=== PATIENT | male | born 1970 | race Caucasian/White ===

== ENCOUNTER → 2017-09-12 08:20 | Outpatient (CLI) | payer OTHER, SELFPAY ==
--- NOTE | 2017-09-12 08:45 | US_ITS ---
STUDY: ABDOMINAL ULTRASOUND REASON FOR EXAM: Male, 47 years old. Right upper quadrant pain. Preoperative assessment for bariatric surgery. TECHNIQUE: Transabdominal ultrasound was performed with real-time and static wagoner scale imaging. TECHNICAL QUALITY: Adequate. COMPARISON: None. FINDINGS: Liver: The liver is enlarged and measures 21.5 cm. There is increased echogenicity consistent with fatty infiltration. The bile ducts are within normal limits. There is hepatic color flow. The direction of portal flow is hepatopetal. There is no demonstrated mass lesion. Portal vein measurement: Gallbladder: Normal distended gallbladder. The gallbladder wall measures 2.5 mm. There is a negative sonographic Starks's sign. There is no pericholecystic fluid. There are no gallstones. Common Bile Duct (C.B.D.): The common bile duct measures 4.5 mm. Pancreas: Normal size of the head, body and tail of the pancreas. There is normal echogenicity of the pancreas. There is no demonstrated pancreatic mass or cyst. Spleen: Normal size of the spleen. The spleen measures 13.4 cm x 5.1 cm x 4.4 cm. Right Kidney: Normal size of the right kidney. The right kidney measures 14.7 cm x 5.4 cm x 7.4 cm. Normal renal cortex. The right cortex measures 1.7 cm. There is no demonstrated renal mass or cyst. There is no right hydronephrosis. Several nonobstructive intrarenal calculi are seen. The largest is in the upper pole measures 1.8 cm. Left Kidney: Normal size of the left kidney. The left kidney measures 16.1 cm x 6.0 cm x 4.9 cm. Normal renal cortex. The left cortex measures 2.1 cm. There is a 1.5 cm x 1.7 cm x 1.4 cm cyst. Multiple nonobstructive intrarenal calculi are seen. There is no left hydronephrosis. Aorta: Unremarkable. I.V.C.: The IVC is patent. There is no ascites. US/Abdomen Complete IMPRESSION: Hepatomegaly and fatty infiltration of the liver. Nonobstructive bilateral intrarenal calculi. Small left renal cyst. Electronically Signed: Ralph Jones MD at 12:17 EST Tel [phone], Service support ,
--- NOTE | 2017-09-12 08:46 | RAD_ITS ---
STUDY: AIR-CONTRAST UPPER GI SERIES. REASON FOR EXAM: Male, 47 years old. Preoperative assessment for gastric bypass surgery. FLUOROSCOPY TIME (if supplied): (0:46) minutes/seconds TECHNIQUE: The patient ingested barium. Multiple images of the esophagus stomach and duodenum were obtained. COMPARISON: None. FINDINGS: The esophagus is unremarkable. There is no evidence of esophageal obstruction. No mass lesion is seen. There is no evidence of gastroesophageal reflux. The stomach and duodenum are unremarkable. No mass lesion is seen. There is no evidence of ulceration. RAD/Upper GI Series Only IMPRESSION: Unremarkable air-contrast upper GI series. Electronically Signed: Ralph Jones MD at 12:39 EST Tel [phone], Service support ,
== END ==
PROVIDERS: Family Provider Family Medicine; PCP Family Medicine; Visit Provider Registered Nurse Nephrology
DX: R10.84 Generalized abdominal pain (principal); I10 Essential (primary) hypertension; G47.33 Obstructive sleep apnea (adult) (pediatric); R06.02 Shortness of breath; E78.00 Pure hypercholesterolemia, unspecified; E66.01 Morbid (severe) obesity due to excess calories
CPT/HCPCS: 74246; 76700

== ENCOUNTER → 2017-11-13 14:11 | Outpatient (CLI) | payer OTHER, SELFPAY ==
[2017-11-13 14:41] LABS: Hematocrit 44.2 % (40-54); Hemoglobin 14.9 g/dl (13.0-16.5); Mean Corp Hgb Conc 33.7 g/gl (32-36); Mean Corpuscular Hgb 28.8 pg (27.0-32.0); Mean Corpuscular Volume 85.5 fL (80-94); Mean Platelet Vol. 9.7 fl (6.2-12.0); Platelet Count 262 K/mm3 (150-450); RBC Distribution Width CV 15.6 % (11.6-14.6); RBC Distribution Width SD 48.5 fl (35.1-43.9); Red Blood Count 5.17 M/mm3 (4.6-6.2); Scan Indicated on CBC? Y/N NO; White Blood Count 8.8 K/mm3 (4.4-11.0)
== END ==
PROVIDERS: Family Provider Family Medicine; PCP Family Medicine; Visit Provider Registered Nurse Nephrology
DX: R10.84 Generalized abdominal pain (principal); I10 Essential (primary) hypertension
CPT/HCPCS: 36415; 85027

== ENCOUNTER → 2018-01-24 09:30 | Outpatient (CLI) | payer OTHER, SELFPAY ==
[2018-01-24 09:56] LABS: Hematocrit 41.2 % (40-54); Hemoglobin 13.3 g/dl (13.0-16.5); Mean Corp Hgb Conc 32.3 g/gl (32-36); Mean Corpuscular Hgb 28.2 pg (27.0-32.0); Mean Corpuscular Volume 87.5 fL (80-94); Mean Platelet Vol. 9.9 fl (6.2-12.0); Platelet Count 279 K/mm3 (150-450); RBC Distribution Width CV 15.9 % (11.6-14.6); RBC Distribution Width SD 50.8 fl (35.1-43.9); Red Blood Count 4.71 M/mm3 (4.6-6.2); White Blood Count 5.9 K/mm3 (4.4-11.0)
[2018-01-24 09:59] LABS: Scan Indicated on CBC? Y/N NO
[2018-01-24 11:27] LABS: ALB/GLOB Ratio 0.9 RATIO (0.9-2.4); AST(SGOT) 18 U/L (15-37); Alanine Aminotransfer ALT/SGPT 34 U/L (16-61); Albumin, Serum 3.6 g/dL (3.2-5.0); Alkaline Phosphatase 75 U/L (45-117); Anion Gap 10 (5-15); BUN 9 mg/dL (7-18); BUN/Creat Ratio 12.3 RATIO (10-20); Calcium,Total 9.1 mg/dL (8.5-10.1); Chloride 105 mmol/L (98-107); Creatinine, Serum 0.73 mg/dL (0.70-1.30); EST Glomerular Filtration Rate 122 mL/min (>60); Est Glom Filt Rate - Afr Amer 148 mL/min (>60); Ferritin 218 ng/mL (26-388); Globulin 4.1 g/dL (2.2-4.2); Glucose 83 mg/dL (74-106); Iron 62 ug/dL (65-175); Magnesium 1.7 mg/dL (1.6-2.6); Potassium 4.1 mmol/L (3.5-5.1); Protein, Total 7.7 g/dL (6.4-8.2); Sodium Level 140 mmol/L (136-145)
[2018-01-24 11:37] LABS: Vitamin B12 715 pg/mL (211-911)
[2018-01-28 10:24] LABS: Zinc, Plasma or Serum 110 ug/dL (56-134)
== END ==
PROVIDERS: Family Provider Family Medicine; PCP Family Medicine; Visit Provider Surgery
DX: E61.1 Iron deficiency (principal); E61.9 Deficiency of nutrient element, unspecified; E66.01 Morbid (severe) obesity due to excess calories; K90.9 Intestinal malabsorption, unspecified; I10 Essential (primary) hypertension; E78.00 Pure hypercholesterolemia, unspecified; R40.0 Somnolence; E55.9 Vitamin D deficiency, unspecified; Z68.42 Body mass index [BMI] 45.0-49.9, adult
CPT/HCPCS: 36415; 80053; 82607; 82728; 82746; 83540; 83735; 84630; 85027

== ENCOUNTER 2018-04-05 11:57 | Emergency (ER) | payer OTHER, SELFPAY ==
[2018-04-05 11:57] VITALS: BP 139/82; PULSE 60; RESP 18; TEMP 36.1; O2SAT 99; BMI 40.6
--- NOTE | 2018-04-05 12:13 | ED.VISSUMM ---
- ER Visit Summary Date of Service: 04/05/18 Chief Complaint: Back pain History of Present Illness: The patient is a 48 M who presents after tweaking his back secondary to near fall. States he was walking to his office. His right foot became entangled with leg of chair. Unable to on tangle his foot. He fell forward into a cabinet. Pushed Against the wall. He had hyper extension of his back and complained of pain. He denies any radicular pain. He has no other complaints please read written note Physical Examination: Vital signs are noted and blood pressure is elevated 139/82. There is no pain the patient of back. Straight leg test and crossover test negative. Patella and ankle reflex 1+. He has no foot drop. EHL is intact. The remainder of exam is unremarkable Test Results: None are indicated Emergency Department Course and Treatment: Since he is status post gastric bypass surgery NSAIDs are contraindicated. He was informed to take Tylenol. He presently has no pain. Treatment Plan: Rest, ice and Tylenol. Disposition: Discharge Impression: Bilateral low back strain secondary to near fall initial encounter This note was generated with [employer] dictation software. It may contain incorrect words, spelling, and punctuation that were not noted in review of the chart prior to signing ED Disposition - Plan for ED Patient: Disposition: Home or Assisted Living Chief Complaint: Fall Instructions: ED Sprain Strain Lumbar Referrals: José Miguel Hercules DO [Primary Care Provider] - As Needed [facility] [GROUP OF PHYSICIANS] - As Needed
== END 2018-04-05 12:37 | disposition home or self-care (01) ==
PROVIDERS: Emergency Provider Emergency Medicine; Family Provider Family Medicine; PCP Family Medicine
DX: S39.012A Strain of muscle, fascia and tendon of lower back, initial encounter (principal); W19.XXXA Unspecified fall, initial encounter; Y93.9 Activity, unspecified; Y92.9 Unspecified place or not applicable; E66.9 Obesity, unspecified; I10 Essential (primary) hypertension; Z98.84 Bariatric surgery status; Z79.899 Other long term (current) drug therapy
CPT/HCPCS: 99282

== ENCOUNTER → 2018-05-07 07:56 | Outpatient (CLI) | payer OTHER, SELFPAY ==
[2018-05-07 08:14] LABS: Hematocrit 46.5 % (40-54); Hemoglobin 15.3 g/dl (13.0-16.5); Mean Corp Hgb Conc 32.9 g/gl (32-36); Mean Corpuscular Hgb 28.7 pg (27.0-32.0); Mean Corpuscular Volume 87.2 fL (80-94); Mean Platelet Vol. 10.1 fl (6.2-12.0); Platelet Count 258 K/mm3 (150-450); RBC Distribution Width CV 14.8 % (11.6-14.6); RBC Distribution Width SD 47.3 fl (35.1-43.9); Red Blood Count 5.33 M/mm3 (4.6-6.2)
[2018-05-07 08:18] LABS: Scan Indicated on CBC? Y/N NO
[2018-05-07 08:54] LABS: Vitamin B12 387 pg/mL (211-911)
[2018-05-07 09:38] LABS: ALB/GLOB Ratio 0.9 RATIO (0.9-2.4); AST(SGOT) 20 U/L (15-37); Alanine Aminotransfer ALT/SGPT 28 U/L (16-61); Albumin, Serum 3.7 g/dL (3.2-5.0); Alkaline Phosphatase 100 U/L (45-117); Anion Gap 9 (5-15); BUN 14 mg/dL (7-18); BUN/Creat Ratio 18.6 RATIO (10-20); Calcium,Total 9.4 mg/dL (8.5-10.1); Chloride 106 mmol/L (98-107); Creatinine, Serum 0.75 mg/dL (0.70-1.30); EST Glomerular Filtration Rate 118 mL/min (>60); Est Glom Filt Rate - Afr Amer 143 mL/min (>60); Ferritin 104 ng/mL (26-388); Globulin 4.1 g/dL (2.2-4.2); Glucose 89 mg/dL (74-106); Iron 53 ug/dL (65-175); Magnesium 2.4 mg/dL (1.6-2.6); Protein, Total 7.8 g/dL (6.4-8.2); Sodium Level 142 mmol/L (136-145)
[2018-05-09 08:11] LABS: Zinc, Plasma or Serum 74 ug/dL (56-134)
== END ==
PROVIDERS: Family Provider Family Medicine; PCP Family Medicine; Visit Provider Registered Nurse Nephrology
DX: K90.9 Intestinal malabsorption, unspecified (principal); K21.9 Gastro-esophageal reflux disease without esophagitis; E78.00 Pure hypercholesterolemia, unspecified; E61.1 Iron deficiency; E55.9 Vitamin D deficiency, unspecified; E61.9 Deficiency of nutrient element, unspecified
CPT/HCPCS: 36415; 80053; 82607; 82728; 82746; 83540; 83735; 84630; 85027

== ENCOUNTER → 2018-08-09 07:54 | Outpatient (CLI) | payer OTHER, SELFPAY ==
[2018-08-09 08:46] LABS: Hematocrit 45.4 % (40-54); Mean Corpuscular Hgb 29.4 pg (27.0-32.0); Mean Platelet Vol. 10.1 fl (6.2-12.0); Platelet Count 234 K/mm3 (150-450); RBC Distribution Width CV 14.9 % (11.6-14.6); RBC Distribution Width SD 47.9 fl (35.1-43.9); White Blood Count 6.5 K/mm3 (4.4-11.0)
[2018-08-09 08:52] LABS: Scan Indicated on CBC? Y/N NO
[2018-08-09 09:42] LABS: BUN 13 mg/dL (7-18); Creatinine, Serum 0.72 mg/dL (0.70-1.30); Glucose 90 mg/dL (74-106)
[2018-08-09 09:43] LABS: AST(SGOT) 17 U/L (15-37); Alanine Aminotransfer ALT/SGPT 22 U/L (16-61); Albumin, Serum 3.7 g/dL (3.2-5.0); Alkaline Phosphatase 104 U/L (45-117); Anion Gap 7 (5-15); Calcium,Total 8.9 mg/dL (8.5-10.1); Chloride 108 mmol/L (98-107); Cholesterol 140 mg/dL (200); EST Glomerular Filtration Rate 123 mL/min (>60); Est Glom Filt Rate - Afr Amer 149 mL/min (>60); Ferritin 124 ng/mL (26-388); Globulin 3.8 g/dL (2.2-4.2); High Density Lipoprotein 46 mg/dL; Iron 86 ug/dL (65-175); Magnesium 2.1 mg/dL (1.6-2.6); Potassium 3.9 mmol/L (3.5-5.1); Protein, Total 7.5 g/dL (6.4-8.2); Sodium Level 141 mmol/L (136-145); Triglycerides 117 mg/dL; Very Low Density Lipoprotein 23 mg/dL (5-40)
[2018-08-09 10:49] LABS: Vitamin B12 389 pg/mL (211-911); Vitamin D,25 Hydroxy 31.4 ng/mL (29.95-100.01)
[2018-08-11 11:17] LABS: Zinc, Plasma or Serum 87 ug/dL (56-134)
== END ==
PROVIDERS: Family Provider Family Medicine; PCP Family Medicine; Referring Provider Registered Nurse Nephrology; Visit Provider Registered Nurse Nephrology
DX: K21.9 Gastro-esophageal reflux disease without esophagitis (principal); K90.9 Intestinal malabsorption, unspecified; I10 Essential (primary) hypertension; E61.1 Iron deficiency; G47.33 Obstructive sleep apnea (adult) (pediatric); E55.9 Vitamin D deficiency, unspecified; E66.01 Morbid (severe) obesity due to excess calories; E61.9 Deficiency of nutrient element, unspecified
CPT/HCPCS: 36415; 80053; 80061; 82306; 82607; 82728; 82746; 83540; 83735; 84630; 85027

== ENCOUNTER → 2018-10-08 08:57 | Outpatient (CLI) | payer OTHER, SELFPAY ==
[2018-08-31 13:00] VITALS: BMI 37.5
--- NOTE | 2018-10-08 09:00 | RAD_ITS ---
STUDY: AIR-CONTRAST UPPER GI SERIES. REASON FOR EXAM: Male, 48 years old. Status post gastric bypass surgery. FLUOROSCOPY TIME (if supplied): (0:07) minutes/seconds. 8 images were obtained. TECHNIQUE: The patient ingested barium. Imaging of the esophagus, stomach and duodenum were obtained. COMPARISON: Comparison is made with prior study dated September 12, 2017. FINDINGS: The esophagus is unremarkable. There is no evidence of esophageal obstruction. No mass lesion is seen. There is no evidence of gastroesophageal reflux. There is evidence of a small sliding hiatal hernia. The patient is status post gastric resection and anastomosis. There is no evidence of obstruction. There is no evidence of ulceration. Findings suggestive of left intrarenal calculi. RAD/Upper GI Series Only IMPRESSION: Small sliding hiatal hernia without gastroesophageal reflux. Status post partial gastrectomy and anastomosis. No abnormality is seen. Electronically Signed: Ralph Jones, at 8:53 EST , Service support ,
== END ==
PROVIDERS: Family Provider Family Medicine; PCP Family Medicine; Referring Provider Registered Nurse Nephrology; Visit Provider Registered Nurse Nephrology
DX: E61.9 Deficiency of nutrient element, unspecified (principal)
CPT/HCPCS: 74246

== ENCOUNTER → 2019-05-14 16:33 | Outpatient (CLI) | payer OTHER, SELFPAY ==
[2018-11-02 16:01] VITALS: BMI 37.5
--- NOTE | 2019-05-14 16:37 | US_ITS ---
STUDY: RENAL ULTRASOUND - COMPLETE REASON FOR EXAM: Male, 49 years old. Nephrolithiasis TECHNIQUE: Ultrasound evaluation of the kidneys was performed with real-time and static felix-scale imaging. COMPARISON: None available. FINDINGS: RIGHT KIDNEY: Normal location of the right kidney, which is normal in size. The right kidney measures 15 cm. There is a normal cortex of the right kidney. There is no right renal mass or cyst. Multiple right renal calculi are present, the largest measuring 6 mm. There is no right hydronephrosis. DISTAL RIGHT URETER: Not visualized. LEFT KIDNEY: Normal location of the left kidney, which is normal in size. The left kidney measures 15 cm. There is a normal cortex of the left kidney. There are 2 left renal cyst in the left kidney measuring up to 2.87 m. There are multiple renal calculi, measuring up to 5 mm.. There is no left hydronephrosis. DISTAL LEFT URETER: Not visualized. Hypoechoic structure is measured adjacent to the spleen may represent splenules. AORTA: No evidence of abdominal aortic aneurysm. I.V.C.: The IVC is patent. BLADDER: The urinary bladder is partially distended and appears unremarkable. US/Kidney and Bladder IMPRESSION: Bilateral renal stones and left renal cysts. No hydronephrosis. Electronically Signed: Marlo Morgan, at 18:31 EDT Tel , Service support ,
== END ==
PROVIDERS: Family Provider Family Medicine; PCP Family Medicine; Referring Provider Family Medicine; Visit Provider Family Medicine
DX: N20.0 Calculus of kidney (principal)
CPT/HCPCS: 76770

== ENCOUNTER → 2019-08-26 06:43 | Outpatient (CLI) | payer OTHER, SELFPAY ==
[2018-11-02 16:01] VITALS: BMI 37.5
--- NOTE | 2019-08-26 06:44 | CT_ITS ---
STUDY: CT ABDOMEN AND PELVIS WITH CONTRAST REASON FOR EXAM: Male, 49 years old. INCISIONAL HERNIA, LUMP IN UMBILICAL AREA NEXT TO SCAR FROM GASTRIC BYPASS SURGERY 11/2017 RADIATION DOSAGE (If Supplied By Facility): CTDIvol = ( 22.06 ) mGy, DLP = ( 1393.34 ) mGycm TECHNIQUE: Transaxial images were obtained from the dome of the diaphragm to the symphysis pubis without oral contrast. Oral and amp; IV Readi-CAT and amp; 100mL Isovue-300 was administered. Sagittal and coronal images were reconstructed. Individualized dose optimization techniques were used for this CT. COMPARISON: None. FINDINGS: The visualized lung bases are unremarkable. The visualized portions of the heart are within normal limits. Normal liver. Normal gallbladder and extrahepatic biliary system. Normal spleen. Normal pancreas. Normal bilateral adrenal glands. Multiple stones are seen in the right kidney largest measures 14 mm. Multiple stones are seen in the left kidney the largest is in the left renal pelvis measures 16mm. There is a cyst in the left kidney measures 3.7 cm. There is a gastric bypass. Normal small intestine. There are multiple colonic diverticula consistent with diverticulosis. There is non-visualization of the appendix. Normal abdominal aorta. Normal inferior vena cava. Normal retroperitoneum. Normal urinary bladder. There is a small umbilical hernia containing fat. Normal osseous structures. CT/Abdomen/Pelvis WITH Contrast IMPRESSION: Small umbilical hernia containing fat measures 2 cm. Bilateral kidney stones largest measures 16 mm. There is no hydronephrosis. Colon diverticulosis. Electronically Signed: Aruna Sanabria, at 7:55 EST Tel , Service support ,
== END ==
PROVIDERS: Family Provider Family Medicine; PCP Family Medicine; Referring Provider Registered Nurse Nephrology; Visit Provider Registered Nurse Nephrology
DX: K43.2 Incisional hernia without obstruction or gangrene (principal)
CPT/HCPCS: 74177; Q9967

== ENCOUNTER → 2020-10-28 07:20 | Outpatient (CLI) | payer OTHER, SELFPAY ==
[2018-11-02 16:01] VITALS: BMI 37.5
[2020-10-28 10:20] LABS: Absolute Lymphocyte Count 1.92 X10^3/uL (0.83-4.51); Absolute Neutrophil Count 5.9 X10^3/uL (2.0-7.7); Basophil# 0.05 X10^3/uL; Basophil% 0.6 % (0-1); Eosinophil# 0.16 X10^3/uL; Eosinophils% 1.8 % (0-5); Hematocrit 40.8 % (40-54); Hemoglobin 13.1 g/dL (13.0-16.5); Lymphocyte # 1.92 X10^3/ul (4.0); Lymphocyte % 21.7 % (19-41); Mean Corp Hgb Conc 32.1 g/dL (32-36); Mean Corpuscular Volume 90.5 fL (80-94); Mean Platelet Vol. 9.8 fl (6.2-12.0); Monocyte# 0.79 X10^3/uL; Monocyte% 8.9 % (0-10); NRBC Flagged by Analyzer 0 % (0-5); Neutrophil # 5.89 X10^3/uL (2.7-7.7); Neutrophil % 66.7 % (47-70); Platelet Count 309 K/mm3 (150-450); RBC Distribution Width CV 13.2 % (11.6-14.6); RBC Distribution Width SD 43.2 fl (35.1-43.9); Red Blood Count 4.51 M/mm3 (4.6-6.2); White Blood Count 8.8 K/mm3 (4.4-11.0)
[2020-10-28 10:27] LABS: Color, Urine Red (Yellow); Glucose, Dipstick Normal (Normal); Ketone-Dipstick Negative (Negative); Leukocyte Esterase-Dipstick 25 /ul (Negative); Nitrite-Dipstick Negative (Negative); Occult Blood-Urine 250 /ul (Negative); Protein-Dipstick 30 mg/dl (Negative); Specific Gravity, Urine 1.015 (1.002-1.030); Urine Bilirubin Dipstick Negative (Negative); Urine Clarity Cloudy (Clear); Urine Urobilinogen Normal (Normal)
[2020-10-28 11:01] LABS: ALB/GLOB Ratio 0.8 RATIO (0.9-2.4); AST(SGOT) 13 U/L (15-37); Alanine Aminotransfer ALT/SGPT 18 U/L (16-61); Albumin, Serum 3.7 g/dL (3.2-5.0); Alkaline Phosphatase 138 U/L (45-117); Anion Gap 6 (5-15); BUN 48 mg/dL (7-18); BUN/Creat Ratio 13.4 RATIO (10-20); CRP 4.35 mg/L (0.0-3.0); Calcium,Total 9.6 mg/dL (8.5-10.1); Chloride 107 mmol/L (98-107); Creatinine, Serum 3.57 mg/dL (0.70-1.30); EST Glomerular Filtration Rate 19 mL/min (>60); Est Glom Filt Rate - Afr Amer 24 mL/min (>60); Globulin 4.5 g/dL (2.2-4.2); Glucose 89 mg/dL (74-106); LDH 153 U/L (87-241); Protein, Total 8.2 g/dL (6.4-8.2); Sodium Level 140 mmol/L (136-145)
== END ==
PROVIDERS: PCP Family Medicine; Referring Provider Family Medicine; Visit Provider Family Medicine
DX: N28.89 Other specified disorders of kidney and ureter (principal); R31.9 Hematuria, unspecified
CPT/HCPCS: 36415; 80053; 81002; 83615; 85025; 86140

== ENCOUNTER 2020-10-28 12:57 | Emergency (ER) | payer OTHER, SELFPAY ==
[2018-11-02 16:01] VITALS: BMI 37.5
[2020-10-28 12:57] VITALS: BP 163/105; PULSE 88; RESP 16; TEMP 36.6; O2SAT 98; BMI 42.0
--- NOTE | 2020-10-28 13:00 | EKG12_ITS ---
Test Reason : CP Blood Pressure : / mmHG Vent. Rate : 076 BPM Atrial Rate : 076 BPM P-R Int : 162 ms QRS Dur : 096 ms QT Int : 360 ms P-R-T Axes : 009 -12 007 degrees QTc Int : 405 ms Normal sinus rhythm Normal ECG Confirmed by LASHELL NUNEZ, GISSELLE ([id number]), news video editor RAMESH DARDEN ([id number]) on 10/29/2020 12:47:49 PM Referred By: ABDIRIZAK/SEAN Confirmed By:GISSELLE LOBO MD
--- NOTE | 2020-10-28 13:40 | CT_ITS ---
STUDY: CT ABDOMEN AND PELVIS WITHOUT CONTRAST REASON FOR EXAM: Male, 50 years old. Left flank pain. Renal failure. Multiple kidney stones. RADIATION DOSAGE (If Supplied By Facility): CTDIvol = ( 24.06 ) mGy, DLP = ( 1400.50 ) mGycm TECHNIQUE: Transaxial images were obtained from the dome of the diaphragm to the symphysis pubis without oral contrast, and without intravenous contrast. Sagittal and coronal images were reconstructed. Individualized dose optimization techniques were used for this CT. COMPARISON: Comparison is made with prior study dated 08/26/2019. FINDINGS: The visualized lung bases are unremarkable. The visualized portions of the heart are within normal limits. Normal liver. Normal gallbladder and extrahepatic biliary system. Normal spleen. Normal pancreas. Normal bilateral adrenal glands. There is a 9.3 mm calculus in the mid posterior calyx of the right kidney. Mild degree of right hydronephrosis. This is due to a 1.1 cm calculus at the right renal pelvic junction. There also is a 1.4 cm calculus in the lower pole calyx of the right kidney. Moderate to marked degree of the left hydronephrosis. There is a 1.1 cm calculus in the posterior midpole calyx of the left kidney as well as 2 adjacent 9 mm calculi in the lower pole calyces. There is also evidence of a 1.1 cm calculus in the proximal portion of the left ureter. There is a small hiatal hernia. Status post subtotal gastrectomy for gastric bypass surgery. Normal small intestine. Normal colon. The appendix is visualized and appears normal. Normal abdominal aorta. Normal inferior vena cava. Normal retroperitoneum. Normal urinary bladder. Normal abdominal wall. There are degenerative changes of the visualized lumbar spine. CT/Abdomen/Pelvis without Cont IMPRESSION: Multiple bilateral renal calculi. Bilateral hydronephrosis worse on the left side due to obstructing calculi in the proximal left ureter as well as at the right ureteropelvic junction. Electronically Signed: Ralph Jones MD at 14:27 EDT , Service support ,
--- NOTE | 2020-10-28 13:41 | ED.DCSUM_ITS ---
History of Present Illness Chief Complaint: Flank Pain Informant: Patient Narrative: 50-year-old male with history of renal calculi presenting with hematuria. Patient states that he had his last real bout of flank pain in the left side in September. He states he never actually passed the stone. He states he does not usually come to the ER for pain because he does not like to. He does not follow with a urologist. He notes that this week he has had some hematuria. He states that in the morning his urine appears to be more clear and then over the course of the day he gets worsening hematuria. He states is not having very much pain. He is not nauseous or vomiting. He denies dysuria. Patient had outpatient lab work performed today which showed his creatinine was 3.5 and was sent to the ER. Patient states that he is able to eat and drink and states he is actually been drinking more frequently. He is not taking any NSAIDs. Past Medical History - Allergies and Home Meds Allergies/Adverse Reactions: Allergies azithromycin [From Zithromax Z-Seth] Adverse Reaction (Verified 10/28/20 13:00) Other burning feeling on tongue NSAIDS (Non-Steroidal Anti-Inflamma Adverse Reaction (Verified 10/28/20 13:00) Other Primary Care Physician: José Miguel Hercules DO [Primary Care Provider] - Prior records reviewed: Yes Past Medical History: - - Hypertension, seasonal allergies, kidney stones Surgical History: - - Multiple lithotripsies Lives: Spouse/ Significant Other Smoking Status: Never smoker Alcohol: None Drugs: None Review of Systems General: Denies: Chills, Fever, Sweats Eyes: Denies: Visual changes - bilaterally, Diplopia ENT: Denies: Rhinorrhea, Sore throat Cardiovascular: Denies: Chest pain, Palpitations Respiratory: Denies: Dyspnea, Cough, Dyspnea on exertion Gastrointestinal: Denies: Abdominal pain, Nausea, Vomiting, Diarrhea, Melena, Hematochezia Genitourinary: Denies: Dysuria, Hematuria, Frequency Musculoskeletal: Reports: Back pain - Mild flank pain Skin: Denies: Rash, Wounds Neurological: Denies: Headache, Weakness, Numbness Physical Exam Vital Signs/Narrative: Vital Signs Temp Pulse Resp BP Pulse Ox 10/28/20 12:57 97.8 F 88 16 163/105 H 98 Inital Vital Signs reviewed: Yes General: Well nourished, Well developed, No Acute Distress Eyes: Perrl, EOMI ENT: Moist mucous membranes, No rhinorrhea Cardiovascular: Regular rate, Regular rhythm, No murmurs Abdomen: Soft, Nontender, Nondistended Back: Negative for: CVA tenderness, Spinal tenderness Skin: Normal color, No rash Neurological: Alert, Oriented x3 Psychological: Normal affect, Normal Mood Diagnostic/Tx/Re-eval Clinical Impression(s) from Imaging Studies Abdomen/Pelvis CT 10/28/20 13:40 IMPRESSION: Multiple bilateral renal calculi. Bilateral hydronephrosis worse on the left side due to obstructing calculi in the proximal left ureter as well as at the right ureteropelvic junction. Electronically Signed: Ralph Jones MD at 14:27 EDT , Service support , - Medical Decision Making Already 10-year-old male presenting with history of kidney stones. Patient has no history of acute renal failure. Patient states that his last known kidney stone was in September. Patient had outpatient lab work today which showed hemoglobin of white blood cell count 8.8, hemoglobin 13.1, hematocrit 40.8, platelets 309. Urinalysis outpatient was positive for occult blood but negative for infection. Creatinine today is 3.57 previous creatinine of 0.72. Patient found to have bilateral ureteral calculi likely the source for the acute renal function. He does have bilateral hydronephrosis as well. Patient was discussed with Dr. Howard who states that she only sees female patients. We do not have an on-call urologist that can help him I am attempting to transfer him. [facility]. A call was made however the callback is still pending. Impression: 1. Hematuria 2. Obstructive uropathy 3. Acute renal failure ED Disposition - Plan for ED Patient: Disposition: [facility] Referrals: José Miguel Hercules DO [Primary Care Provider] -
[2020-10-28 13:43] VITALS: BP 147/95; PULSE 72; RESP 20; O2SAT 98
[2020-10-28 15:00] VITALS: BP 148/97; PULSE 61; RESP 15; O2SAT 100
--- NOTE | 2020-10-28 16:05 | NURSING ---
CALLED [facility]. FAXED FACESHEET
[2020-10-28] MEDS: 0.9% Normal Saline 1,000 ML 999 ML IV (16:06)
--- NOTE | 2020-10-28 16:36 | NURSING ---
[facility] [id number] NURSE TO NURSE [phone]
--- NOTE | 2020-10-28 16:40 | NURSING ---
CALLED [facility], ETA IS 90 MIN
--- NOTE | 2020-10-28 16:45 | CHAPLAIN ---
Type of Pastoral Visit _x__ Initial Visit ___ Follow-up Visit ___ On-call Visit ___ General Patient Visit ___ Spiritual Assessment ___ Family Conference ___ Bereavement ___ Rapid Response ___ Code Blue ___ Other (describe below) Pastoral Care Referral From ___ Patient _x__ Family ___ Nurse ___ Physician ___ Chimney Builder ___ Director Of Direct Marketing ___ Other (describe below) Sacrament/Intervention _x__ Active listening ___ Anointing ___ Sikh ___ Bereavement ___ Communion ___ Natalie exploration ___ ___ Life review _x__ Prayer ___ Reconciliation ___ Sacrament of Sick _x__ Supportive presence ___ Wedding ___ Other (describe below) Pastoral Comments
[2020-10-28 17:00] VITALS: BP 123/92; PULSE 63; RESP 18; O2SAT 98
[2020-10-28 18:00] VITALS: TEMP 36.8
[2020-10-28 18:22] VITALS: BP 123/92; PULSE 63; RESP 18; TEMP 36.6; O2SAT 98
== END 2020-10-28 18:23 | disposition short-term general hospital (02) ==
PROVIDERS: Emergency Provider Student in an Organized Health Care Education/Training Program; PCP Family Medicine
DX: N13.2 Hydronephrosis with renal and ureteral calculous obstruction (principal); R31.9 Hematuria, unspecified; N17.9 Acute kidney failure, unspecified; I10 Essential (primary) hypertension; Z87.442 Personal history of urinary calculi; Z79.899 Other long term (current) drug therapy
CPT/HCPCS: 74176; 93005; 96360; 96361; 99285; J7030; A4216

== ENCOUNTER → 2020-11-04 07:06 | Outpatient (CLI) | payer OTHER, SELFPAY ==
[2020-10-28 12:57] VITALS: BMI 42.0
[2020-11-04 08:09] LABS: Anion Gap 6 (5-15); BUN 40 mg/dL (7-18); BUN/Creat Ratio 16.3 RATIO (10-20); Chloride 104 mmol/L (98-107); Creatinine, Serum 2.45 mg/dL (0.70-1.30); EST Glomerular Filtration Rate 30 mL/min (>60); Est Glom Filt Rate - Afr Amer 36 mL/min (>60); Glucose 91 mg/dL (74-106); Potassium 3.8 mmol/L (3.5-5.1); Sodium Level 137 mmol/L (136-145)
== END ==
PROVIDERS: PCP Family Medicine; Referring Provider Internal Medicine Nephrology; Visit Provider Internal Medicine Nephrology
DX: N17.9 Acute kidney failure, unspecified (principal)
CPT/HCPCS: 36415; 80048

== ENCOUNTER → 2021-01-03 11:49 | Outpatient (CLI) | payer OTHER, SELFPAY ==
[2021-01-03 11:53] LABS: Bacteria 0 SEEN /hpf (None Seen); Mucous, Urine 0 SEEN /hpf (<or=2+); Squamous Epithelial Cells - UA 0 SEEN /hpf (0-5)
[2021-01-03 12:00] LABS: Hematocrit 35.5 % (40-54); Hemoglobin 11.2 g/dL (13.0-16.5); Mean Corp Hgb Conc 31.5 g/dL (32-36); Mean Corpuscular Hgb 28.8 pg (27.0-32.0); Mean Corpuscular Volume 91.3 fL (80-94); Mean Platelet Vol. 9.3 fl (6.2-12.0); Platelet Count 362 K/mm3 (150-450); RBC Distribution Width CV 13.3 % (11.6-14.6); RBC Distribution Width SD 44.7 fl (35.1-43.9); Red Blood Count 3.89 M/mm3 (4.6-6.2); White Blood Count 8.1 K/mm3 (4.4-11.0)
[2021-01-03 12:09] LABS: Color, Urine Yellow (Yellow); Glucose, Dipstick Normal (Normal); Ketone-Dipstick Negative (Negative); Leukocyte Esterase-Dipstick 500 /ul (Negative); Nitrite-Dipstick Negative (Negative); Occult Blood-Urine 250 /ul (Negative); Protein-Dipstick 30 mg/dl (Negative); Urine Bilirubin Dipstick Negative (Negative); Urine Clarity Sl. Cloudy (Clear); Urine Urobilinogen Normal (Normal)
[2021-01-03 12:17] LABS: Protein, Urine (Random) 58.7 mg/dL (<11.9); Protein:Creat Ratio 726 mg/g CRE (0-200); Red Blood Cells-Urine 25-50 SEEN /hpf (0-5); White Blood Cells 0-5 SEEN /hpf (0-5)
[2021-01-03 12:29] LABS: Albumin, Serum 3.7 g/dL (3.2-5.0); BUN 27 mg/dL (7-18); BUN/Creat Ratio 13.9 RATIO (10-20); Calcium,Total 9.1 mg/dL (8.5-10.1); Chloride 111 mmol/L (98-107); Creatinine, Serum 1.94 mg/dL (0.70-1.30); EST Glomerular Filtration Rate 39 mL/min (>60); Est Glom Filt Rate - Afr Amer 47 mL/min (>60); Glucose 97 mg/dL (74-106); Phosphorus 2.4 mg/dL (2.5-4.9); Potassium 4.5 mmol/L (3.5-5.1); Sodium Level 140 mmol/L (136-145)
[2021-01-04 10:19] LABS: PTHIN 122.9 pg/mL (18.4-80.1)
[2021-01-07 12:31] LABS: Vitamin D,25 Hydroxy 21.3 ng/mL
== END ==
PROVIDERS: PCP Family Medicine; Referring Provider Family Medicine; Visit Provider Internal Medicine Nephrology
DX: N17.9 Acute kidney failure, unspecified (principal); N18.32 Chronic kidney disease, stage 3b; N20.0 Calculus of kidney
CPT/HCPCS: 36415; 80069; 81001; 82306; 82570; 83970; 84156; 85027; 87086

== ENCOUNTER → 2021-04-12 14:41 | Outpatient (CLI) | payer OTHER, SELFPAY ==
[2021-04-12 15:14] LABS: Anion Gap 4 (5-15); BUN 22 mg/dL (7-18); BUN/Creat Ratio 14.8 RATIO (10-20); Calcium,Total 9.1 mg/dL (8.5-10.1); Chloride 110 mmol/L (98-107); Creatinine, Serum 1.49 mg/dL (0.70-1.30); EST Glomerular Filtration Rate 53 mL/min (>60); Est Glom Filt Rate - Afr Amer 64 mL/min (>60); Glucose 82 mg/dL (74-106); Potassium 3.8 mmol/L (3.5-5.1); Sodium Level 139 mmol/L (136-145)
== END ==
PROVIDERS: PCP Family Medicine; Referring Provider Family Medicine; Visit Provider Family Medicine
DX: N28.9 Disorder of kidney and ureter, unspecified (principal)
CPT/HCPCS: 36415; 80048

== ENCOUNTER → 2021-06-27 | Outpatient (CLI) | payer OTHER, SELFPAY ==
[2021-06-27 16:49] LABS: Color, Urine Amber (Yellow); Glucose, Dipstick Normal (Normal); Ketone-Dipstick Negative (Negative); Leukocyte Esterase-Dipstick 100 /ul (Negative); Nitrite-Dipstick Negative (Negative); Occult Blood-Urine 250 /ul (Negative); Protein-Dipstick 100 mg/dl (Negative); Urine Bilirubin Dipstick Negative (Negative); Urine Clarity Cloudy (Clear); Urine Urobilinogen Normal (Normal)
[2021-06-27 17:07] LABS: Red Blood Cells-Urine 50-100 SEEN /hpf (0-5)
[2021-06-27 17:08] LABS: Squamous Epithelial Cells - UA 0-5 SEEN /hpf (0-5); White Blood Cells 5-10 SEEN /hpf (0-5)
[2021-06-27 17:09] LABS: Bacteria 1+ /hpf (None Seen); Mucous, Urine RARE /hpf (<or=2+)
== END | disposition home or self-care (01) ==
PROVIDERS: PCP Family Medicine; Referring Provider Nurse Practitioner Family; Visit Provider Nurse Practitioner Family
DX: N39.0 Urinary tract infection, site not specified (principal)
CPT/HCPCS: 81001; 87086

== ENCOUNTER 2022-07-11 13:18 | Outpatient (CLI) | payer OTHER, SELFPAY | END 2022-07-11 23:59 | disposition home or self-care (01) | LOC: BFHLAB 13:19 | PROVIDERS: PCP Family Medicine; Visit Provider Family Medicine | DX: Z00.00 Encounter for general adult medical examination without abnormal findings (principal); Z12.5 Encounter for screening for malignant neoplasm of prostate; N20.9 Urinary calculus, unspecified; E55.9 Vitamin D deficiency, unspecified; Z98.84 Bariatric surgery status ==

== ENCOUNTER 2022-07-19 07:24 | Outpatient (CLI) | payer OTHER, SELFPAY ==
[2022-07-19 10:03] LABS: Absolute Lymphocyte Count 1.78 X10^3/uL (0.83-4.51); Absolute Neutrophil Count 5.2 X10^3/uL (2.0-7.7); Basophil# 0.05 X10^3/uL; Basophil% 0.6 % (0-1); Eosinophil# 0.16 X10^3/uL; Hematocrit 50.3 % (40-54); Hemoglobin 16.1 g/dL (13.0-16.5); Lymphocyte # 1.78 X10^3/ul (0.83-4.51); Lymphocyte % 22.1 % (19-41); Mean Corpuscular Hgb 28.7 pg (27.0-32.0); Mean Corpuscular Volume 89.7 fL (80-94); Mean Platelet Vol. 10.3 fl (6.2-12.0); Monocyte# 0.84 X10^3/uL; Monocyte% 10.4 % (0-10); NRBC Flagged by Analyzer 0 % (0-5); Neutrophil # 5.18 X10^3/uL (2.7-7.7); Neutrophil % 64.5 % (47-70); Platelet Count 257 K/mm3 (150-450); RBC Distribution Width CV 13.9 % (11.6-14.6); RBC Distribution Width SD 45.1 fl (35.1-43.9); Red Blood Count 5.61 M/mm3 (4.6-6.2)
[2022-07-19 10:19] LABS: Vitamin B12 715 pg/mL (211-911); Vitamin D,25 Hydroxy 39.2 ng/mL
[2022-07-19 10:31] LABS: Color, Urine Yellow (Yellow); Glucose, Dipstick Normal (Normal); Ketone-Dipstick Negative (Negative); Leukocyte Esterase-Dipstick Negative /ul (Negative); Nitrite-Dipstick Negative (Negative); Occult Blood-Urine Negative /ul (Negative); Protein-Dipstick 15 mg/dl (Negative); Urine Bilirubin Dipstick Negative (Negative); Urine Clarity Clear (Clear); Urine Urobilinogen Normal (Normal)
[2022-07-19 10:32] LABS: ALB/GLOB Ratio 0.9 RATIO (0.9-2.4); AST(SGOT) 29 U/L (15-37); Alanine Aminotransfer ALT/SGPT 48 U/L (16-61); Albumin, Serum 3.5 g/dL (3.2-5.0); Alkaline Phosphatase 110 U/L (45-117); Anion Gap 6 (5-15); BUN 29 mg/dL (7-18); BUN/Creat Ratio 22.1 RATIO (10-20); Calcium,Total 9.3 mg/dL (8.5-10.1); Chloride 105 mmol/L (98-107); Cholesterol 175 mg/dL (200); Creatinine, Serum 1.31 mg/dL (0.70-1.30); EST Glomerular Filtration Rate 61 mL/min (>60); Est Glom Filt Rate - Afr Amer 74 mL/min (>60); Globulin 3.9 g/dL (2.2-4.2); Glucose 91 mg/dL (74-106); High Density Lipoprotein 47 mg/dL; PSA,Total - Annual Screen 0.69 ng/mL (0.00-4.00); Potassium 4.8 mmol/L (3.5-5.1); Protein, Total 7.4 g/dL (6.4-8.2); Sodium Level 140 mmol/L (136-145); Triglycerides 202 mg/dL; Uric Acid 8.3 mg/dL (3.5-7.2); Very Low Density Lipoprotein 40 mg/dL (5-40)
== END 2022-07-19 23:59 | disposition home or self-care (01) ==
LOC: MTLAB 07:24
PROVIDERS: PCP Family Medicine; Referring Provider Family Medicine; Visit Provider Family Medicine
DX: Z00.00 Encounter for general adult medical examination without abnormal findings (principal); Z12.5 Encounter for screening for malignant neoplasm of prostate; N20.9 Urinary calculus, unspecified; E55.9 Vitamin D deficiency, unspecified; Z98.84 Bariatric surgery status
CPT/HCPCS: 36415; 80053; 80061; 81002; 82306; 82607; 84153; 84550; 85025; G0103

== ENCOUNTER → 2022-08-05 | Outpatient (CLI) | payer OTHER, SELFPAY ==
--- NOTE | 2022-08-05 07:28 | CT_ITS ---
STUDY: CT ABDOMEN AND PELVIS WITHOUT CONTRAST REASON FOR EXAM: Male, 52 years old. R UROLITHIASIS. History of kidney stones. RADIATION DOSAGE (If Supplied By Facility): CTDIvol = ( 34.40 ) mGy, DLP = ( 2088.36 ) mGycm TECHNIQUE: Transaxial images were obtained from the dome of the diaphragm to the symphysis pubis without oral contrast, and without intravenous contrast. Sagittal and coronal images were reconstructed. Individualized dose optimization techniques were used for this CT. COMPARISON: Comparison is made with prior study dated 10/28/2020. FINDINGS: The visualized lung bases are unremarkable. Coronary artery calcification. Normal liver. Normal gallbladder and extrahepatic biliary system. Normal spleen. Normal pancreas. Normal bilateral adrenal glands. 2.5 mm nonobstructive calculus in the upper pole of the right kidney. This is a 7 mm calculus at the right ureteropelvic junction. Minimal degree of right hydronephrosis. Nonobstructive calculi are seen in the lower pole of the right kidney. The larger measures 1.5 cm. Nonobstructive left intrarenal calculi. The largest is in the lower pole and measures 8 mm. There is a 2.4 cm cyst in the lower pole of the left kidney. The patient is status post subtotal gastrectomy for gastric bypass surgery. Normal small intestine. There are scattered colonic diverticula consistent with diverticulosis. The appendix is visualized and appears normal. Normal abdominal aorta. Normal inferior vena cava. Normal retroperitoneum. Normal urinary bladder. There is a moderate-sized umbilical hernia containing fat. Normal osseous structures. CT/Abdomen/Pelvis without Cont IMPRESSION: Multiple bilateral intrarenal calculi. 7 mm calculus at the right ureteropelvic junction causing a mild degree of right hydronephrosis. Electronically Signed: Ralph Jones MD at 8:17 EST ,
== END | disposition home or self-care (01) ==
LOC: CT 07:25
PROVIDERS: PCP Family Medicine; Referring Provider Family Medicine; Visit Provider Family Medicine
DX: N13.2 Hydronephrosis with renal and ureteral calculous obstruction (principal); I25.10 Atherosclerotic heart disease of native coronary artery without angina pectoris; K42.9 Umbilical hernia without obstruction or gangrene; Z98.84 Bariatric surgery status; K57.30 Diverticulosis of large intestine without perforation or abscess without bleeding; N28.1 Cyst of kidney, acquired; R82.992 Hyperoxaluria
CPT/HCPCS: 74176

== ENCOUNTER 2022-08-26 09:12 | Day surgery (SDC) | payer OTHER, SELFPAY ==
[2022-08-26] MEDS: Lactated Ringers 1,000 ML 15 ML IV (09:45)
[2022-08-26 09:47] VITALS: BP 132/84; PULSE 64; RESP 18; TEMP 36.6; O2SAT 100; BMI 47.9
--- NOTE | 2022-08-26 10:15 | COLBX_PTH ---
PATIENT: BENTON SOSA LOC: EN U#:[id number] AGE/SX: 52/M ROOM: RE08/26/[address]: Dr. Macario Brunner MD : 1970 BED: DIS: 08/26/2022 SPEC #: [id number] RECD: 08/26/22 11:49 STATUS: CLEOPATRA REChetan #: [id number] SUAD: 08/26/22 10:[address]: Macario Brunner DEPT: SURGICAL PATHOLOGY RECD BY: Isaura Rain ENTERED: 08/26/22 13:07 SP TYPE: COLON BX OTHR DR: Dr. José Miguel Hercules, Tissues: Descending colon Procedures: Surgery Specimen Level IV HEADER OPERATION: Colonoscopy (MAC), polypectomy PRE-OP DIAGNOSIS: Umbilical hernia TISSUE SUBMITTED: Descending polyp MICROSCOPIC DIAGNOSIS Descending colon polyp, polypectomy: Tubular adenoma with focal high-grade dysplasia. See comment. SAMPSON:hang 08/29/2022 COMMENT High-grade dysplasia is noted at the luminal surface of the polyp. Correlation with clinical, endoscopic findings and appropriate follow up are necessary. Case has been reviewed in consultation with Dr. Jean who concurs with the above diagnosis. IDC:SAMPSON MICROSCOPIC DESCRIPTION Slides are reviewed. GROSS DESCRIPTION Received in fixative is one container labeled with the patient's name and designated descending polyp. The specimen consists of a wong-pink polyp measuring 0.7 x 0.5 x 0.5 cm. The presumed base is inked. The specimen is bisected and submitted entirely in one cassette. / SAMPSON:hang 08/26/2022 TC:1 CPT: 27878
--- NOTE | 2022-08-26 10:53 | HP.PCM_ITS ---
History and Physical Date of Admission: 08/26/22 Intake Vital Signs ? 08/05/2212:49 Height 6 ft 2 in Weight: 380 lb 4 oz BMI 48.8 BP 125/87 H Blood Pressure Location Rt brachial Position Sitting Respiration 17 Pulse 64 Pulse Source Monitor Temp 97.6 F L Temp Source Temporal Pulse Oximetry (%) 100 Oxygen Delivery Method room air Intake Visit Reasons:?UMBILICAL HERNIA Chief Complaint: umbilical hernia Is patient in pain?: No Allergies azithromycin [From Zithromax Z-Seth] Adverse Reaction (Verified 08/05/22 12:51) OtherNSAIDS (Non-Steroidal Anti-Inflamma Adverse Reaction (Verified 08/05/22 12:51) Other Medications amlodipine 10 mg tablet 10 mg PO DAILY HEART 06/22/16 [History Confirmed 08/05/22] multivitamin 1 ea PO DAILY SUPPLEMENT 06/22/16 [History Confirmed 08/05/22] cetirizine 10 mg tablet 10 mg PO DAILY ALLERGIES 04/05/18 [History Confirmed 08/05/22] cyanocobalamin (vitamin B-12) 2,500 mcg chewable tablet 1,000 mcg PO SUTUTH SUPPLEMENT 04/05/18 [History Confirmed 08/05/22] calcium carbonate 600 mg-vitamin D3 10 mcg (400 unit) capsule 2 each PO DAILY 10/28/20 [History Confirmed 08/05/22] levofloxacin 750 mg tablet 750 mg PO DAILY #10 tabs 07/01/22 [Rx Confirmed 08/05/22] prednisone 50 mg tablet 50 mg PO DAILY #5 tabs 07/01/22 [Rx Confirmed 08/05/22] PFSH Medical History?(Updated 08/05/22 @ 14:[address] Macario Brunner MD) Acute bronchitis, unspecified Acute sinusitis, unspecified Family History?(Updated 08/05/22 @ 12:49 by Jayne Phillips) Father Hypertension Heart diseaseGrandfather Colon cancer Diabetes Hypertension CVA (cerebral vascular accident) Social History?(Updated 08/05/22 @ 12:49 by Jayne Phillips) Smoking Status:? Never smoker alcohol intake:? current substance use type:? does not use HPI HPI HPI: Is a 52-year-old male here for umbilical hernia.? The patient reports is been there for several years.? He thinks it is getting larger.? It is uncomfortable.? He has no nausea or vomiting. ROS General General: Yes weight change and fatigue; No appetite, colon cancer, breast cancer or weakness HEENT HEENT: No difficulty swallowing, eye injury, eye surgery, swollen glands or hoarseness Endo Endocrine: No thyroid disease, diabetes mellitus, thyroid cancer, Hair loss, heat intolerance or cold intolerance Skin Skin: No rash or changing moles Musc Musculoskeletal: Yes back problems, arthritis and gout; No rheumatoid arthritis or joint pain Cardio Cardiovascular: Yes high blood pressure; No murmur, pacemaker, heart disease, atrial fibrillation, heart attack, heart stent, palpitations, shortness of breat with exertion or chest pain Psych Psychiatric: Yes anxiety; No depression or hearing voices Resp Respiratory: No shortness of breath, Yes sleep apnea, No cough, No COPD, No asthma, No emphysema and No wheezing Gastro Gastrointestinal: Yes abdominal pain, No nausea or vomiting, Yes diarrhea, No constipation, No blood in stool, No acid reflux, No hemorrhoids, No ulcers, No gallbladder problem and No black,tarry stools Roderick Hematologic: No blood thinners, No blood disorders, No bleeding, No anemia and No blood clots Neuro Neurologic: No system reviewed and no additional complaints, except as documented, No as per HPI, No abnormal gait, No abnormal hearing, No abnormal movements, No abnormal speech, No behavioral changes, No burning sensations, No confusion, No convulsions, No disequilibrium, No dizziness, No localized weakness, No frequent falls, No headache(s), No lack of coordination, No loss of vision, No memory loss, Yes numbness, No other visual disturbances, No radicular pain, No restless legs, No sensory deficit, No syncope, Yes tingling, No tremor(s), No weakness and No other Exam Const General: cooperative Nutritional Appearance: obese Orientation: alert and oriented x3 HENMT Head: normal to inspection Neck Neck: normal visual inspection and full ROM Chest Chest palpation & inspection: normal inspection of the chest Resp Effort & Inspection: normal respiratory effort Auscultation: clear to auscultation bilaterally Cardio Rate: regular rate Rhythm: regular rhythm GI Inspection: non-distended Palpation: soft, hernia umbilical and nontender Skin General: no rashes or lesions noted Neuro General: patient alert and patient oriented x3 Extrem General: full ROM Psych Appearance: grossly normal Mental Status: mental status grossly normal Assessment and Plan Assessment and Plan (1) Umbilical hernia: ?Status:?Acute ?Qualifiers: ?Obstruction and gangrene presence:?without obstruction or gangrene? Qualified Code(s):?K42.9 - Umbilical hernia without obstruction or gangrene ?Plan: Patient has an umbilical hernia.? He had a CT scan done today for his kidney issues and the umbilical hernia was identified and appears to be around 3 cm in diameter.? There is a lot of adipose tissue in the hernia.? Patient has had several surgeries in the past including gastric bypass.? I discussed robotic assisted laparoscopic umbilical hernia repair with mesh.? I discussed the risks including not limited to bleeding, infection, injury to underlying organs or recurrence of hernia.? I did also discussed mesh placement in detail.? Patient understands all the risks and is willing to proceed. Patient is also never had a screening colonoscopy and would like one before the hernia surgery.? I explained endoscopy in detail to the patient.? I explained the risks including but not limited to stroke or heart attack with anesthesia, perforation of the GI tract, bleeding, infection.? I explained that any of these could necessitate further emergency surgery.? The patient understands and all questions were answered sufficiently.? The patient wishes to proceed with procedure. Macario Brunner MD Pager: [facility] [address] [place] [address], [address] [place] [address] Office: I have examined the patient and the H&P has been reviewed. There are no clinical changes since date of exam.
--- NOTE | 2022-08-26 11:39 | OP.COLON_ITS ---
Patient Name: Gurjit Contreras Procedure Date: 08/26/2022 9:16 AM Date of : 1970 Age: 52 Procedure: Colonoscopy Indications: Screening for colorectal malignant neoplasm Providers: Macario Brunner MD Medicines: Monitored Anesthesia Care Patient Profile: This is a 52 year old male. Refer to note in patient chart for documentation of history and physical. Last Colonoscopy: none. The patient's first colonoscopy is today. Complications: No immediate complications. Procedure: Pre-Anesthesia Assessment: - Prior to the procedure, a History and Physical was performed, and patient medications and allergies were reviewed. The patient's tolerance of previous anesthesia was also reviewed. The risks and benefits of the procedure and the sedation options and risks were discussed with the patient. All questions were answered, and informed consent was obtained. Prior Anticoagulants: The patient has taken no previous anticoagulant or antiplatelet agents. After reviewing the risks and benefits, the patient was deemed in satisfactory condition to undergo the procedure. After I obtained informed consent, the scope was passed under direct vision. Throughout the procedure, the patient's blood pressure, pulse, and oxygen saturations were monitored continuously. The colonoscope was introduced through the anus and advanced to the cecum, identified by appendiceal orifice and ileocecal valve. The colonoscopy was performed without difficulty. The patient tolerated the procedure well. The quality of the bowel preparation was good. Scope In: 11:15:33 AM Scope Withdrawal Time 0 hours 6 minutes 45 seconds Scope Out: 11:33:31 AM Total Procedure Duration Time 0 hours 17 minutes 58 seconds Findings: A polyp was found in the descending colon. The polyp was removed with a hot snare. Resection and retrieval were complete. Verification of patient identification for the specimen was done. Multiple small-mouthed diverticula were found in the sigmoid colon and descending colon. The exam was otherwise without abnormality on direct and retroflexion views. Impression: - One polyp in the descending colon, removed with a hot snare. Resected and retrieved. - Diverticulosis in the sigmoid colon and in the descending colon. - The examination was otherwise normal on direct and retroflexion views. Recommendation: - Discharge patient to home. - Resume previous diet. - Continue present medications. - Await pathology results. - Repeat colonoscopy in 5 years for surveillance based on pathology results. Procedure Code(s): --- Professional --- 84742, Colonoscopy, flexible; with removal of tumor(s), polyp(s), or other lesion(s) by snare technique Diagnosis Code(s): --- Professional --- Z12.11, Encounter for screening for malignant neoplasm of colon D12.4, Benign neoplasm of descending colon K57.30, Diverticulosis of large intestine without perforation or abscess without bleeding CPT copyright 2017 [employer]. All rights reserved. The codes documented in this report are preliminary and upon engineering assistant review may be revised to meet current compliance requirements. Macario Brunner MD 08/26/2022 11:38:54 AM This report has been signed electronically. Number of Addenda: 0 Note Initiated On: 08/26/2022 9:16 AM
[2022-08-26 11:40] VITALS: BP 124/82; BP 132/84; PULSE 65; RESP 16; TEMP 36.3; O2SAT 93
--- NOTE | 2022-08-26 11:40 | OP.CCLET_ITS ---
08/26/2022 José Miguel Hercules [address] [place] [address] Re : Colonoscopy procedure for Gurjit Torrezlisa Dear Dr. Hercules This procedure was performed on Friday, August 26, 2022. My impressions and recommendations are as follows: Impressions : - One polyp in the descending colon, removed with a hot snare. Resected and retrieved. - Diverticulosis in the sigmoid colon and in the descending colon. - The examination was otherwise normal on direct and retroflexion views. Recommendations : - Discharge patient to home. - Resume previous diet. - Continue present medications. - Await pathology results. - Repeat colonoscopy in 5 years for surveillance based on pathology results. My findings are described in the full procedure note, which is enclosed. If I can be of further assistance, please feel free to contact me at Doctor phone number(s): , Work: . Sincerely, Macario Brunner MD 08/26/2022 11:38:54 AM This report has been signed electronically.
[2022-08-26 11:45] VITALS: BP 132/84; BP 135/75; PULSE 61; RESP 16; O2SAT 95
[2022-08-26 11:50] VITALS: BP 131/76; BP 132/84; PULSE 56; RESP 16; O2SAT 95
[2022-08-26 11:55] VITALS: BP 132/84; BP 133/80; PULSE 58; RESP 16; TEMP 36.3; O2SAT 95
[2022-08-26 12:17] VITALS: BP 132/84
== END 2022-08-26 12:30 | disposition home or self-care (01) ==
LOC: EN 09:13 → AC 09:15
PROVIDERS: PCP Family Medicine; Referring Provider Family Medicine; Visit Provider Surgery
PROC: 0DJD8ZZ Inspection of Lower Intestinal Tract, Via Natural or Artificial Opening Endoscopic (ICD-10-PCS; CPT 45378; principal; 2022-08-26 10:10)
DX: Z12.11 Encounter for screening for malignant neoplasm of colon (principal); K42.9 Umbilical hernia without obstruction or gangrene; K57.30 Diverticulosis of large intestine without perforation or abscess without bleeding; Z80.0 Family history of malignant neoplasm of digestive organs; D12.4 Benign neoplasm of descending colon
CPT/HCPCS: 45385; 88305; J7120; J2405

== ENCOUNTER → 2022-12-12 | Outpatient (CLI) | payer OTHER, SELFPAY ==
[2022-12-12 08:11] LABS: Bacteria 0 SEEN /hpf (None Seen); Mucous, Urine 0 SEEN /hpf (<or=2+); Red Blood Cells-Urine 0 SEEN /hpf (0-5); Squamous Epithelial Cells - UA 0 SEEN /hpf (0-5); White Blood Cells 0 SEEN /hpf (0-5)
[2022-12-12 12:31] LABS: Absolute Neutrophil Count 4.6 X10^3/uL (2.0-7.7); Basophil# 0.05 X10^3/uL; Basophil% 0.7 % (0-1); Eosinophil# 0.13 X10^3/uL; Eosinophils% 1.8 % (0-5); Hematocrit 49.7 % (40-54); Hemoglobin 15.8 g/dL (13.0-16.5); Lymphocyte % 23.6 % (19-41); Mean Corp Hgb Conc 31.8 g/dL (32-36); Mean Corpuscular Hgb 29.3 pg (27.0-32.0); Mean Corpuscular Volume 92.2 fL (80-94); Mean Platelet Vol. 10.3 fl (6.2-12.0); Monocyte% 9.7 % (0-10); NRBC Flagged by Analyzer 0 % (0-5); Neutrophil # 4.58 X10^3/uL (2.7-7.7); Neutrophil % 63.6 % (47-70); Platelet Count 247 K/mm3 (150-450); RBC Distribution Width CV 14.5 % (11.6-14.6); RBC Distribution Width SD 49.2 fl (35.1-43.9); Red Blood Count 5.39 M/mm3 (4.6-6.2); White Blood Count 7.2 K/mm3 (4.4-11.0)
[2022-12-12 12:35] LABS: Color, Urine Yellow (Yellow); Glucose, Dipstick Normal (Normal); Ketone-Dipstick Negative (Negative); Leukocyte Esterase-Dipstick Negative /ul (Negative); Nitrite-Dipstick Negative (Negative); Occult Blood-Urine Negative /ul (Negative); Protein-Dipstick Negative (Negative); Specific Gravity, Urine 1.015 (1.002-1.030); Urine Bilirubin Dipstick Negative (Negative); Urine Clarity Clear (Clear); Urine Urobilinogen Normal (Normal)
[2022-12-12 13:14] LABS: Uric Acid 7.4 mg/dL (3.5-7.2)
--- NOTE | 2022-12-12 16:38 | RAD_ITS ---
INDICATION: FLANK PAIN, KIDNEY STONE EXAMINATION/TECHNIQUE: X-RAY - XR Abdomen 1 View COMPARISON: CT August 05, 2022 FINDINGS: BOWEL GAS PATTERN: Nonspecific non-obstructive bowel gas pattern. No focal stomach or bowel distention. Moderate colonic stool. FREE AIR: Not well assessed on a supine view. ORGANOMEGALY: Not seen. CALCIFICATIONS: 2 mm radiodensity projects over the left renal shadow. No suspicious calcification along the expected ureteral course. Small unchanged right lateral pelvis phlebolith.. BONES AND SOFT TISSUES: No acute pathology. RAD/Abdomen Single View IMPRESSION: 2 mm left renal calcification suggested. Overlying stool and bowel gas may obscure other stones. CT could further evaluate as clinically indicated. Non-obstructive bowel gas pattern. Electronically Signed: Julius Arguelles MD at 22:18 EDT ,
== END | disposition home or self-care (01) ==
PROVIDERS: PCP Family Medicine; Referring Provider Family Medicine; Visit Provider Family Medicine
DX: E79.0 Hyperuricemia without signs of inflammatory arthritis and tophaceous disease (principal); Z51.81 Encounter for therapeutic drug level monitoring; R10.9 Unspecified abdominal pain
CPT/HCPCS: 36415; 74018; 81001; 84550; 85025; 87086; 87088

== ENCOUNTER → 2023-03-31 | Outpatient (CLI) | payer OTHER, SELFPAY ==
--- NOTE | 2023-03-31 07:55 | CT_ITS ---
STUDY: CT ABDOMEN AND PELVIS WITHOUT CONTRAST REASON FOR EXAM: Male, 53 years old. FLANK PAIN. History of multiple kidney stones. RADIATION DOSAGE (If Supplied By Facility): CTDIvol = ( 24.18 ) mGy, DLP = ( 1274.56 ) mGycm TECHNIQUE: Transaxial images were obtained from the dome of the diaphragm to the symphysis pubis without oral contrast, and without intravenous contrast. Sagittal and coronal images were reconstructed. Individualized dose optimization techniques were used for this CT. COMPARISON: Comparison is made with prior study dated August 05, 2022. FINDINGS: The visualized lung bases are unremarkable. The visualized portions of the heart are within normal limits. Normal liver. Normal gallbladder and extrahepatic biliary system. Normal spleen. Normal pancreas. Normal bilateral adrenal glands. Bilateral nonobstructive intrarenal calculi. Stable 2.4 cm cyst in the lower pole of the left kidney. The patient is status post bariatric surgery. Normal small intestine. There are multiple colonic diverticula consistent with diverticulosis. The appendix is visualized and appears normal. Normal abdominal aorta. Normal inferior vena cava. Normal retroperitoneum. Normal urinary bladder. There is a moderate-sized umbilical hernia containing fat. There are mild degenerative changes of the visualized lumbar spine. CT/Abdomen/Pelvis without Cont IMPRESSION: Nonobstructive bilateral intrarenal calculi. Status post gastric bypass surgery. Moderate sized umbilical hernia. Sigmoid diverticulosis. Electronically Signed: Ralph Jones MD at 12:55 EDT ,
[2023-03-31 09:37] LABS: Anion Gap 2 (5-15); BUN 21 mg/dL (7-18); BUN/Creat Ratio 16.8 RATIO (10-20); Calcium,Total 9.3 mg/dL (8.5-10.1); Chloride 108 mmol/L (98-107); Creatinine, Serum 1.25 mg/dL (0.70-1.30); EST Glomerular Filtration Rate 65 mL/min (>60); Est Glom Filt Rate - Afr Amer 78 mL/min (>60); Glucose 102 mg/dL (74-106); Potassium 4.5 mmol/L (3.5-5.1); Sodium Level 138 mmol/L (136-145)
== END | disposition home or self-care (01) ==
PROVIDERS: PCP Family Medicine
DX: R10.9 Unspecified abdominal pain (principal); N20.0 Calculus of kidney
CPT/HCPCS: 36415; 74176; 80048

== ENCOUNTER 2023-06-12 10:07 | Day surgery (SDC) | payer OTHER, SELFPAY ==
[2023-06-09 08:45] VITALS: BMI 48.6
[2023-06-12 10:41] LABS: Anion Gap 3 (5-15); BUN 23 mg/dL (7-18); BUN/Creat Ratio 16.9 RATIO (10-20); Calcium,Total 9.3 mg/dL (8.5-10.1); Chloride 109 mmol/L (98-107); Creatinine, Serum 1.36 mg/dL (0.70-1.30); EST Glomerular Filtration Rate 58 mL/min (>60); Est Glom Filt Rate - Afr Amer 71 mL/min (>60); Estimated Creatinine Clearance 73.87 ml/min; Glucose 108 mg/dL (74-106); Potassium 4.5 mmol/L (3.5-5.1); Sodium Level 142 mmol/L (136-145)
--- NOTE | 2023-06-12 11:38 | PCM.OP.PRO ---
Procedure Report Date of Procedure: 06/12/23 Direct-current cardioversion. He is a 53-year-old man with a history of recently diagnosed atrial fibrillation. He has been on anticoagulation for a minimum of 4 weeks. He was brought to the cardiac catheterization lab in the postabsorptive nonsedated state. He was seen by Dr. Black of the critical care division. Informed consent was obtained. Anterior-posterior pads were applied. The patient was administered 150 mg of intravenous propofol. 300 J of direct-current energy were applied biphasic with prompt reversal to sinus rhythm. Patient tolerated the procedure well. Continue as per office protocol. Continue anticoagulation. Patient willing to consider react A-fib trial.
--- NOTE | 2023-06-12 12:10 | PCM.OP.PRO ---
Procedure Report Date of Procedure: 06/12/23 CONSCIOUS SEDATION REPORT DATE OF SERVICE: June 12, 2023 BRIEF HISTORY OF PRESENT ILLNESS: The patient is a 53-year-old male who presented to [facility] for an elective outpatient cardioversion due to underlying atrial fibrillation. The patient denied any prior anesthetic complications. He denied a history of asthma. He does report a history of obstructive sleep apnea, for which he utilizes nocturnal CPAP therapy. The patient is systemically anticoagulated on Eliquis. His last surface echocardiogram demonstrated an ejection fraction of approximately 55%. PHYSICAL EXAMINATION: VITAL SIGNS: Reviewed and were acceptable. GENERAL: The patient is an obese male, in no apparent distress, speaking in full sentences. HEENT: Normocephalic, atraumatic. Mucous membranes are moist and pink. Good mouth opening noted. Trachea is midline. CHEST: S1, S2 irregularly irregular. No murmurs, rubs or gallops were noted. LUNGS: Clear to auscultation bilaterally without appreciable wheezes, rales or rhonchi. ABDOMEN: Soft, nontender, nondistended. Positive bowel sounds. EXTREMITIES: There is no clubbing, cyanosis or edema. ASA Class: II DESCRIPTION OF PROCEDURE: After confirmation of informed consent, the patient's anesthesia plan was reviewed in detail. Propofol was chosen. Risks and benefits were reviewed and the patient agreed to proceed. At 1125, the patient was given his first bolus of propofol. In total, the patient required 150 mg of propofol to achieve an appropriate level of sedation, after which time, he was given a 300 joule synchronized cardioversion by Dr. Flores at the bedside. This was successful in achieving normal sinus rhythm. The patient was monitored until 1140, at which time he reached his baseline mental status and function. The patient tolerated the procedure well. COMPLICATIONS: None ESTIMATED BLOOD LOSS: None RECOMMENDATIONS: Okay to recover in usual fashion. Procedures Pulmonary 9xxxx: [id number] Con Sedation
== END 2023-06-12 12:45 | disposition home or self-care (01) ==
LOC: CLSP 10:09
PROVIDERS: PCP Family Medicine; Referring Provider Internal Medicine Cardiovascular Disease; Visit Provider Internal Medicine Cardiovascular Disease
DX: I48.91 Unspecified atrial fibrillation (principal); Z68.42 Body mass index [BMI] 45.0-49.9, adult; G47.33 Obstructive sleep apnea (adult) (pediatric); Z99.89 Dependence on other enabling machines and devices; E66.9 Obesity, unspecified; I10 Essential (primary) hypertension; Z98.84 Bariatric surgery status; Z82.49 Family history of ischemic heart disease and other diseases of the circulatory system
CPT/HCPCS: 36415; 80048; 92960; 93005; J7040

== ENCOUNTER → 2023-06-30 | Outpatient (CLI) | payer OTHER, SELFPAY ==
--- NOTE | 2023-06-30 08:02 | RAD_ITS ---
STUDY: X-RAY CHEST REASON FOR EXAM: Male, 53 years old. sob TECHNIQUE: PA and lateral COMPARISON: None. FINDINGS: The lungs are clear and expanded. There is no demonstrated pleural abnormality. Normal size heart. Normal mediastinum and phillip. Normal visualized pulmonary arteries. Normal visualized aortic arch and descending thoracic aorta. Dorsal spine demonstrates degenerative changes. Normal visualized ribs, clavicles, and shoulders. There is no demonstrated abnormality of the visualized soft tissue structures of the upper abdomen. RAD/Chest PA and Lateral IMPRESSION: No acute cardiopulmonary pathology. Electronically Signed: Marlo Nash MD at 16:19 EST ,
[2023-06-30 10:21] LABS: Absolute Lymphocyte Count 1.57 X10^3/uL (0.83-4.51); Absolute Neutrophil Count 4.9 X10^3/uL (2.0-7.7); Basophil# 0.04 X10^3/uL; Basophil% 0.6 % (0-1); Eosinophil# 0.14 X10^3/uL; Hematocrit 51.5 % (40-54); Hemoglobin 16.3 g/dL (13.0-16.5); Lymphocyte # 1.57 X10^3/ul (0.83-4.51); Lymphocyte % 22.2 % (19-41); Mean Corp Hgb Conc 31.7 g/dL (32-36); Mean Corpuscular Volume 91.5 fL (80-94); Mean Platelet Vol. 10.3 fl (6.2-12.0); Monocyte# 0.45 X10^3/uL; Monocyte% 6.4 % (0-10); NRBC Flagged by Analyzer 0 % (0-5); Neutrophil # 4.85 X10^3/uL (2.7-7.7); Neutrophil % 68.5 % (47-70); Platelet Count 215 K/mm3 (150-450); RBC Distribution Width CV 13.7 % (11.6-14.6); RBC Distribution Width SD 46.4 fl (35.1-43.9); Red Blood Count 5.63 M/mm3 (4.6-6.2); White Blood Count 7.1 K/mm3 (4.4-11.0)
[2023-06-30 10:48] LABS: ALB/GLOB Ratio 0.8 RATIO (0.9-2.4); AST(SGOT) 34 U/L (15-37); Alanine Aminotransfer ALT/SGPT 56 U/L (16-61); Albumin, Serum 3.6 g/dL (3.2-5.0); Alkaline Phosphatase 105 U/L (45-117); Anion Gap 4 (5-15); BUN 28 mg/dL (7-18); BUN/Creat Ratio 18.9 RATIO (10-20); Calcium,Total 9.5 mg/dL (8.5-10.1); Chloride 106 mmol/L (98-107); Creatinine, Serum 1.48 mg/dL (0.70-1.30); EST Glomerular Filtration Rate 53 mL/min (>60); Est Glom Filt Rate - Afr Amer 64 mL/min (>60); Globulin 4.3 g/dL (2.2-4.2); Glucose 113 mg/dL (74-106); Potassium 4.1 mmol/L (3.5-5.1); Protein, Total 7.9 g/dL (6.4-8.2); Sodium Level 139 mmol/L (136-145)
== END | disposition home or self-care (01) ==
LOC: MTLAB 07:48
PROVIDERS: PCP Family Medicine; Referring Provider Physician Assistant Medical; Visit Provider Physician Assistant Medical
DX: I11.0 Hypertensive heart disease with heart failure (principal); I50.9 Heart failure, unspecified; I48.91 Unspecified atrial fibrillation
CPT/HCPCS: 36415; 71046; 80053; 83880; 85025

== ENCOUNTER → 2023-08-29 | Outpatient (CLI) | payer OTHER, SELFPAY ==
[2023-08-29 10:50] LABS: BNP,B-Type NATRIURETIC PEPTIDE 14.3 pg/mL (0-100)
[2023-08-29 10:51] LABS: Anion Gap 4 (5-15); BUN 21 mg/dL (7-18); BUN/Creat Ratio 14.6 RATIO (10-20); Calcium,Total 9.8 mg/dL (8.5-10.1); Chloride 106 mmol/L (98-107); Creatinine, Serum 1.44 mg/dL (0.70-1.30); EST Glomerular Filtration Rate 55 mL/min (>60); Est Glom Filt Rate - Afr Amer 66 mL/min (>60); Glucose 99 mg/dL (74-106); Magnesium 2.2 mg/dL (1.6-2.6); Potassium 4.1 mmol/L (3.5-5.1); Sodium Level 139 mmol/L (136-145)
== END | disposition home or self-care (01) ==
LOC: LAB 09:57
PROVIDERS: PCP Family Medicine; Referring Provider Internal Medicine Cardiovascular Disease; Visit Provider Internal Medicine Cardiovascular Disease
DX: I50.9 Heart failure, unspecified (principal)
CPT/HCPCS: 36415; 80048; 83735; 83880

== ENCOUNTER → 2023-11-10 | Outpatient (CLI) | payer OTHER, SELFPAY ==
[2023-11-10 10:00] LABS: Absolute Lymphocyte Count 1.67 X10^3/uL (0.83-4.51); Absolute Neutrophil Count 4.4 X10^3/uL (2.0-7.7); Basophil# 0.06 X10^3/uL; Basophil% 0.9 % (0-1); Eosinophil# 0.19 X10^3/uL; Eosinophils% 2.7 % (0-5); Hematocrit 48.9 % (40-54); Hemoglobin 15.5 g/dL (13.0-16.5); Lymphocyte # 1.67 X10^3/ul (0.83-4.51); Mean Corp Hgb Conc 31.7 g/dL (32-36); Mean Corpuscular Hgb 29.1 pg (27.0-32.0); Mean Corpuscular Volume 91.9 fL (80-94); Mean Platelet Vol. 9.7 fl (6.2-12.0); Monocyte# 0.66 X10^3/uL; Monocyte% 9.5 % (0-10); NRBC Flagged by Analyzer 0 % (0-5); Neutrophil # 4.36 X10^3/uL (2.7-7.7); Neutrophil % 62.5 % (47-70); Platelet Count 249 K/mm3 (150-450); RBC Distribution Width CV 13.8 % (11.6-14.6); RBC Distribution Width SD 46.7 fl (35.1-43.9); Red Blood Count 5.32 M/mm3 (4.6-6.2)
[2023-11-10 10:15] LABS: Anion Gap 3 (5-15); BUN 25 mg/dL (7-18); BUN/Creat Ratio 17.9 RATIO (10-20); Calcium,Total 9.6 mg/dL (8.5-10.1); Chloride 109 mmol/L (98-107); EST Glomerular Filtration Rate 56 mL/min (>60); Est Glom Filt Rate - Afr Amer 68 mL/min (>60); Glucose 103 mg/dL (74-106); Potassium 4.4 mmol/L (3.5-5.1); Sodium Level 140 mmol/L (136-145)
[2023-11-10 10:34] LABS: BNP,B-Type NATRIURETIC PEPTIDE 7.8 pg/mL (0-100)
== END | disposition home or self-care (01) ==
LOC: MTLAB 08:03
PROVIDERS: PCP Family Medicine; Referring Provider Physician Assistant Medical; Visit Provider Physician Assistant Medical
DX: R06.09 Other forms of dyspnea (principal); G47.30 Sleep apnea, unspecified
CPT/HCPCS: 36415; 80048; 83880; 85025

== ENCOUNTER → 2024-01-02 | Outpatient (CLI) | payer OTHER, SELFPAY | END | disposition home or self-care (01) | PROVIDERS: PCP Family Medicine; Referring Provider Nurse Practitioner Acute Care; Visit Provider Nurse Practitioner Acute Care | DX: G47.30 Sleep apnea, unspecified (principal) | CPT/HCPCS: 95811 ==

== ENCOUNTER → 2024-03-25 | Day surgery (SDC) | payer OTHER, SELFPAY ==
[2024-03-25 08:49] LABS: Anion Gap 3 (5-15); BUN 19 mg/dL (7-18); BUN/Creat Ratio 14.4 RATIO (10-20); Calcium,Total 9.5 mg/dL (8.5-10.1); Chloride 108 mmol/L (98-107); Creatinine, Serum 1.32 mg/dL (0.70-1.30); EST Glomerular Filtration Rate 60 mL/min (>60); Est Glom Filt Rate - Afr Amer 73 mL/min (>60); Glucose 102 mg/dL (74-106); Potassium 4.2 mmol/L (3.5-5.1); Sodium Level 139 mmol/L (136-145)
[2024-03-25 11:34] VITALS: BMI 48.9
--- NOTE | 2024-03-25 12:33 | PRO.PCM_ITS ---
Procedure Report Date of Procedure: 03/25/24 DC cardioversion. 54-year-old man with a history of persistent atrial fibrillation which is s ymptomatic. The patient was brought to cardiac catheterization lab in the postabsorptive nonsedated state. Informed consent was obtained. The patient was seen by Dr. Black of the critical care division. Anterior-posterior pads were applied. 300 J of synchronized DC cardioversion energy were applied after the administration of 100 mg intravenous propofol. The patient reverted back to sinus rhythm and appeared to be tolerated the procedure well. Conclusion: Successful DC cardioversion from atrial fibrillation to sinus rhythm. Continue current medical therapy. Will recommend starting flecainide 100 mg twice a day
--- NOTE | 2024-03-25 13:04 | PRO.PCM_ITS ---
Procedure Report Date of Procedure: 03/25/24 CONSCIOUS SEDATION REPORT DATE OF SERVICE: March 25, 2024 BRIEF HISTORY OF PRESENT ILLNESS: The patient is a 54-year-old male who presented to [facility] for an elective outpatient cardioversion due to underlying atrial fibrillation. The patient denied any prior anesthetic complications. He denied a history of asthma. He does report a history of obstructive sleep apnea, for which he utilizes nocturnal CPAP therapy. The patient is systemically anticoagulated on Eliquis. His last surface echocardiogram demonstrated an ejection fraction of approximately 55%. PHYSICAL EXAMINATION: VITAL SIGNS: Reviewed and were acceptable. GENERAL: The patient is an obese male, in no apparent distress, speaking in full sentences. HEENT: Normocephalic, atraumatic. Mucous membranes are moist and pink. Good mouth opening noted. Trachea is midline. CHEST: S1, S2 irregularly irregular. No murmurs, rubs or gallops were noted. LUNGS: Clear to auscultation bilaterally without appreciable wheezes, rales or rhonchi. ABDOMEN: Soft, nontender, nondistended. Positive bowel sounds. EXTREMITIES: There is no clubbing, cyanosis or edema. ASA Class: II DESCRIPTION OF PROCEDURE: After confirmation of informed consent, the patient's anesthesia plan was reviewed in detail. Propofol was chosen. Risks and benefits were reviewed and the patient agreed to proceed. At 1229, the patient was given his first bolus of propofol. In total, the patient required 100 mg of propofol to achieve an appropriate level of sedation, after which time, he was given a 300 joule synchronized cardioversion by Dr. Flores at the bedside. This was successful in achieving normal sinus rhythm. The patient was monitored until 1243, at which time he reached his baseline mental status and function. The patient tolerated the procedure well. COMPLICATIONS: None ESTIMATED BLOOD LOSS: None RECOMMENDATIONS: Okay to recover in usual fashion. Procedures Pulmonary Pulmonary Procedures /Diagnostic Testin Con Sedation
== END | disposition home or self-care (01) ==
LOC: CLSP 11:05
PROVIDERS: PCP Family Medicine; Referring Provider Internal Medicine Cardiovascular Disease; Visit Provider Internal Medicine Cardiovascular Disease
DX: I48.91 Unspecified atrial fibrillation (principal); I11.0 Hypertensive heart disease with heart failure; I50.32 Chronic diastolic (congestive) heart failure; G47.33 Obstructive sleep apnea (adult) (pediatric); Z79.01 Long term (current) use of anticoagulants; E66.9 Obesity, unspecified; Z98.84 Bariatric surgery status; K21.9 Gastro-esophageal reflux disease without esophagitis; E78.2 Mixed hyperlipidemia; Z82.49 Family history of ischemic heart disease and other diseases of the circulatory system; R51.9 Headache, unspecified; R53.83 Other fatigue
CPT/HCPCS: 36415; 80048; 92960; 93005; J7040

== ENCOUNTER → 2024-08-13 | Outpatient (CLI) | payer OTHER, SELFPAY ==
--- NOTE | 2024-08-13 14:24 | STRESSREP ---
Stress Test Report Exercise myocardial perfusion stress test. 54-year-old man with a history of atrial fibrillation Stress protocol: Resting EKG demonstrates sinus bradycardia with a rate of 58 bpm resting blood pressure is 132/70 mmHg. The patient exercised according to the regular Morris protocol for a total duration of 6 minutes attaining a maximum heart rate of 133 bpm which was 79% of maximum predicted heart rate; the maximum workload was 7 metabolic equivalents. At rest there were no ST or T wave changes noted to suggest ischemia and at peak exercise upsloping ST changes only were noted which did not meet the criteria for ischemia. No clinical angina was noted the test was terminated due to the target heart rate being achieved/fatigue. The peak blood pressure was 180/72 mmHg. Rate-pressure product was 20,300. Myocardial perfusion protocol. 14 point mCi of technetium 99m sestamibi was injected at rest. The patient exercised according to regular Morris protocol for total duration of 6 minutes and at peak exercise 45 mCi of technetium 99m sestamibi was injected stress images were obtained stress and rest images were reconstructed in comparing the short axis vertical long and horizontal long axis. Gated images were also obtained. Perfusion SPECT analysis: Review of the stress images demonstrate normal uptake of tracer noted in all areas of the myocardium. The resting images similarly demonstrate normal uptake of tracer noted in all areas of the myocardium. No areas of reversibility are noted to suggest ischemia no previous infarct was noted. Gated SPECT analysis: The gated ejection fraction is 74%. Conclusion: Normal exercise myocardial perfusion stress test at a moderate workload Preserved ejection fraction.
== END | disposition home or self-care (01) ==
LOC: CVS 06:03
PROVIDERS: PCP Family Medicine; Referring Provider Physician Assistant Medical; Visit Provider Physician Assistant Medical
DX: R07.9 Chest pain, unspecified (principal)
CPT/HCPCS: 78452; 93017; A9500; A4216

== ENCOUNTER → 2024-08-27 | Outpatient (CLI) | payer OTHER, SELFPAY ==
[2024-08-27 10:58] LABS: Hemoglobin A1c 5.4 % (3.8-5.6)
== END | disposition home or self-care (01) ==
LOC: LAB 10:14
PROVIDERS: PCP Family Medicine; Referring Provider Internal Medicine Cardiovascular Disease; Visit Provider Internal Medicine Cardiovascular Disease
DX: I48.0 Paroxysmal atrial fibrillation (principal); E66.01 Morbid (severe) obesity due to excess calories
CPT/HCPCS: 36415; 83036

== ENCOUNTER → 2024-11-21 | Outpatient (CLI) | payer OTHER, SELFPAY | END | disposition home or self-care (01) | LOC: LABSPEC 13:24 | PROVIDERS: PCP Family Medicine; Visit Provider Family Medicine | DX: N39.0 Urinary tract infection, site not specified (principal) | CPT/HCPCS: 87077; 87086; 87088 ==

== ENCOUNTER → 2024-12-27 | Outpatient (CLI) | payer OTHER, SELFPAY ==
[2024-12-27 08:03] LABS: Color, Urine Yellow (Yellow); Glucose, Dipstick Normal (Normal); Ketone-Dipstick Negative (Negative); Leukocyte Esterase-Dipstick 100 /ul (Negative); Nitrite-Dipstick Negative (Negative); Occult Blood-Urine 50 /ul (Negative); Protein-Dipstick 30 mg/dl (Negative); Specific Gravity, Urine 1.015 (1.002-1.030); Urine Bilirubin Dipstick Negative (Negative); Urine Clarity Clear (Clear); Urine Urobilinogen Normal (Normal)
== END | disposition home or self-care (01) ==
LOC: LAB 07:17
PROVIDERS: PCP Family Medicine; Referring Provider Family Medicine; Visit Provider Family Medicine
DX: N39.0 Urinary tract infection, site not specified (principal)
CPT/HCPCS: 81002; 87077; 87086; 87088; 87186